=== PATIENT | male | born 1985 | race Caucasian/White ===

== ENCOUNTER 2024-09-14 09:16 | Outpatient (CLI) | payer MEDICARE, SELFPAY ==
--- NOTE | 2024-09-14 09:19 | XR_ITS ---
FINAL REPORT CLINICAL HISTORY: Right Humerus Pain COMPARISON: 08/21/2024 FINDINGS: RIGHT SHOULDER Three views demonstrate a nondisplaced fracture of the greater tuberosity. There are small calcifications near the humeral head which may represent calcific tendinitis. There is no subluxation or dislocation. IMPRESSION: Nondisplaced greater tuberosity fracture. Reviewed, Interpreted and Dictated by Sharyn Farias MD Transcribed by Nancy Donnelly Authenticated and [facility]
== END 2024-09-14 23:59 | disposition home or self-care (01) ==
LOC: RAD 09:18
PROVIDERS: Visit Provider Physician Assistant
DX: S42.254A Nondisplaced fracture of greater tuberosity of right humerus, initial encounter for closed fracture (principal); X58.XXXA Exposure to other specified factors, initial encounter
CPT/HCPCS: 73030